=== PATIENT | female | born 1960 | race Caucasian/White ===

== ENCOUNTER → 2016-09-24 | Outpatient (CLI) | payer SELFPAY ==
--- NOTE | 2016-09-24 11:56 | DI ---
Indication: ITS.REASON: M54.31 Sciatica, right side PROCEDURE: LUMBAR SPINE COMP W/O BEND: Encounter: Initial Comparison: None Findings: Alignment of the lumbar spine is within normal limits. No acute fracture identified. The oblique views show no discrete pars defects. There is however mild anterolisthesis of L4 on L5 which is grade 1. Moderate disk space narrowing at L4-L5. The remaining disk spaces are maintained. Degenerative facet disease at L5-S1. Impression: Anterolisthesis of L4 on L5 could be due to degenerative change or spondylolysis and spondylolisthesis. .
== END ==
LOC: IMA 09:14
PROVIDERS: ATTEND Nurse Practitioner Family
DX: M54.31 Sciatica, right side (principal); M43.16 Spondylolisthesis, lumbar region